=== PATIENT | male | born 1965 | race Caucasian/White ===

== ENCOUNTER 2016-09-08 15:50 | Emergency (ER) | payer MEDICARE ==
[~2016-09-08] VITALS: Ht 180.3 cm; Wt 180.0 kg
[2016-09-08 15:54] VITALS: BP 155/95; PULSE 85; RESP 18; TEMP 98; O2SAT 94
[2016-09-08] MEDS ORDERED: GLYB5TAB3 PO (16:10)
[2016-09-08] MEDS ORDERED: ZOCO20TA PO (16:10)
[2016-09-08] MEDS ORDERED: [UNRECOGNIZED DRUG - OTHER] PO (16:10)
[2016-09-08] MEDS ORDERED: BUPR150XL PO (16:10)
[2016-09-08] MEDS ORDERED: LYRI200C PO (16:10)
[2016-09-08] MEDS ORDERED: METF1000 PO (16:10)
[2016-09-08] MEDS ORDERED: PERC7.5T13 PO (16:10)
[2016-09-08] MEDS ORDERED: HYDR25TA5 PO (16:10)
--- NOTE | 2016-09-08 16:57 | PD ---
HPI Chief Complaint: Back/ Neck Pain or Injury Time Seen by Provider: 16:30 Travel History International Travel<30 days: No Contact w/Intl Traveler<30days: No Traveled to known affect area: No History of Present Illness HPI 51-year-old male presents to the emergency room for evaluation of acute on chronic back pain. Patient states while moving furniture today, the bookcase fell over and struck him on his mid and lower back. He reports immediate pain. Pain is worse with palpation and range of motion. Patient states he typically takes Percocet for chronic pain but has run out since being in [place]. He has been here for 3 weeks and is due to go back to [place] soon. States he called his primary care physician who told him that he cannot fax a prescription to [place] so he will need to come to an urgent care or emergency room. Patient tried to go to an urgent care center but they did not accept his insurance. He cannot take NSAIDs because he has history of stomach ulcers. Patient states Tylenol is not working. Patient denies other laxity paresthesias , saddle anesthesia, or loss of bowel or bladder control. PFSH Past Medical History High Cholesterol: Yes Diabetes: Yes Patient Takes Glucophage: Yes Diminished Hearing: No Herniated Disk: Yes Hypertension: Yes Tetanus Vaccination: < 5 Years Past Surgical History Other Surgery: Yes (RIGHT ANKLE AND RIBS) Social History Alcohol Use: No Tobacco Use: Yes (/2 PPD) Substance Use: No Allergies-Medications (Allergen,Severity, Reaction): Coded Allergies: Nonsteroidal Anti-Inflammatory Agts (Verified Allergy, Unknown, 09/08/16) Penicillin (Verified Allergy, Unknown, 09/08/16) Reported Meds & Prescriptions Reported Meds & Active Scripts Active Robaxin (Methocarbamol) 750 Mg Tab 750 Mg PO Q8HR Lortab (Hydrocodone-Acetaminophen) 7.5-325 Mg Tab 1 Tab PO Q6H PRN Reported [Lucerna] 100 Mg PO DAILY Wellbutrin Xl 24 HR (Bupropion HCl) 150 Mg Tab 150 Mg PO DAILY Percocet (Oxycodone-Acetaminophen) 7.5-325 mg Tab 1 Tab PO Q6H PRN Lyrica (Pregabalin) 200 Mg Cap 200 Mg PO TID Zocor (Simvastatin) 20 Mg Tab 20 Mg PO DAILY Hydrochlorothiazide 25 Mg Tab 25 Mg PO DAILY Metformin (Metformin HCl) 1,000 Mg Tab 1,000 Mg PO BIDPC With meals Glyburide 5 Mg Tab 5 Mg PO BID Take with meals at the same time each day Review of Systems Except as stated in HPI: all other systems reviewed are Neg Physical Exam Narrative GENERAL: Well-nourished, mildly obese male in no acute distress. Afebrile. Ambulatory. SKIN: Focused skin assessment warm/dry. No erythema or ecchymosis. HEAD: Normocephalic. EYES: No scleral icterus. No injection or drainage. NECK: Supple, trachea midline. No JVD or lymphadenopathy. CARDIOVASCULAR: Regular rate and rhythm without murmurs, gallops, or rubs. RESPIRATORY: Breath sounds equal bilaterally. No accessory muscle use. BACK: Extreme tenderness to palpation of the thoracic and lumbar spine without obvious deformity. No CVA tenderness. Data Data Last Documented VS Vital Signs Date Time Temp Pulse Resp B/P Pulse Ox O2 Delivery O2 Flow Rate FiO2 09/08/16 15:54 98.0 85 18 155/95 94 MDM Medical Decision Making Medical Screen Exam Complete: Yes Emergency Medical Condition: Yes Medical Record Reviewed: Yes Differential Diagnosis Spasm, sprain, contusion, fracture Narrative Course 51-year-old morbidly obese male presents to the emergency room for evaluation of back pain after injuring it earlier today. Patient states a large bookcase fell on his back striking him in the mid and lower back. He denies any other injuries. He has been ambulatory since injury. Patient ran out of his Percocet while visiting from [place]. States Tylenol will not help and he cannot take NSAIDs because of history of stomach ulcers. Physical exam is reassuring. No step-off deformity, contusion, or focal neurological deficits. Extreme tenderness to palpation of the thoracic and lumbar spine. I do not think mechanism of injury warrants imaging at this time. Patient will be discharged with a short course of Percocet and Robaxin. Told to follow-up with his primary care physician or return for worsening symptoms. He understands and agrees to plan. Diagnosis Primary Impression: Back contusion Qualified Code: S20.229A - Back contusion, unspecified laterality, initial encounter Referrals: Primary Care Physician Patient Instructions: Contusion in Adults (ED), General Instructions Additional Instructions: Rest and drink plenty of fluids. Take Lortab as directed, as needed for pain. Do not drink alcohol or drive while taking this medication. Take Robaxin as directed, as needed for pain. Apply ice to the affected area for 20 minutes at a time, as needed for pain and swelling. Follow-up with a primary care physician. Return to the emergency room for worsening symptoms. Med/Other Pt SpecificInfo: Prescription(s) given Scripts Methocarbamol (Robaxin)750 Mg Loc412 Mg PO Q8HR #10 TAB Ref 0 Prov:Dane Silva MD 09/08/16 Hydrocodone-Acetaminophen (Lortab)7.5-325 Mg Tab1 Tab PO Q6H PRN (PAIN) #10 TAB Ref 0 Prov:Dane Silva MD 09/08/16 Disposition: 01 DISCHARGE HOME Condition: Stable Teresa Oneill Sep 08, 2016 16:57
[2016-09-08] MEDS ORDERED: ROBA750T PO (16:59)
[2016-09-08] MEDS ORDERED: HYDR-3534 PO (16:59)
== END 2016-09-08 17:00 | disposition home or self-care (01) ==
LOC: PHEFT 15:50
DX: S20.229A Contusion of unspecified back wall of thorax, initial encounter (principal); E78.00 Pure hypercholesterolemia, unspecified; E11.9 Type 2 diabetes mellitus without complications; I10 Essential (primary) hypertension; F17.210 Nicotine dependence, cigarettes, uncomplicated; W20.8XXA Other cause of strike by thrown, projected or falling object, initial encounter; Y93.E9 Activity, other interior property and clothing maintenance; Y92.009 Unspecified place in unspecified non-institutional (private) residence as the place of occurrence of the external cause; Y99.8 Other external cause status
CPT/HCPCS: 99284